=== PATIENT | male | born 2000 | race Two or more races ===

== ENCOUNTER 2020-07-28 20:28 | Emergency (ER) | payer SELFPAY ==
[~2020-07-28] VITALS: Ht 177.8 cm; Wt 74.8 kg
[2020-07-28 20:32] VITALS: BP 132/86
--- NOTE | 2020-07-28 20:50 | Emergency Room Report ---
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
== END 2020-07-28 20:50 | disposition left against medical advice (07) ==
LOC: EMR 20:45
DX: Z53.21 Procedure and treatment not carried out due to patient leaving prior to being seen by health care provider (principal)